=== PATIENT | female | born 1955 | race Two or more races ===

== ENCOUNTER 2019-04-14 20:25 | Inpatient (IN) | payer OTHER ==
[~2019-04-14] VITALS: Ht 149.9 cm; Wt 76.4 kg
[2019-04-14 21:27] LABS: Urine Bacteria NONE SEEN /hpf (None Seen); Urine Blood Negative /uL (Negative); Urine Mucus FEW (None Seen); Urine Specific Gravity 1.022 (1.001-1.035); Urine WBC 1 /hpf (0 - 5)
[2019-04-14 21:29] LABS: Basophils # (auto) 0.1 uL; Basophils % (auto) 0.7 % (0.0-2.0); Eosinophils # (auto) 0 uL; Eosinophils % (auto) 0.1 % (0.0-7.0); Lymphocytes % (auto) 12.6 % (10.0-50.0); Mean Corpuscular Hemoglobin 30.3 pg (28.0-32.0); Mean Corpuscular Hgb Conc. 34.1 g/dL (32.0-36.0); Mean Corpuscular Volume 88.8 fL (80.0-100.0); Monocytes % (auto) 6.2 % (0.0-12.0); Neutrophils # (auto) 13.1 uL; Neutrophils % (auto) 80.4 % (37.0-80.0); Platelet Count (auto) 252 10^3/uL (140-450); Red Blood Cells 4.95 10^6/uL (4.0-5.20); Red Cell Distribution Width 13.7 % (11.8-14.3); White Blood Cell 16.3 10^3/uL (4.4-10.8)
[2019-04-14 21:39] LABS: Albumin 4.3 g/dL (3.4-5.0); Amylase 30 U/L (25-115); Anion Gap 10 (5-15); Blood Urea Nitrogen 10 mg/dL (7-18); Calcium 9.4 mg/dL (8.5-10.1); Carbon Dioxide 25 mmol/L (21-32); Chloride 97 mmol/L (98-107); Glucose 174 mg/dL (74-106); Lipase 46 U/L (73-393); Potassium 3.7 mmol/L (3.5-5.1); Sodium 132 mmol/L (136-145)
[2019-04-14 21:43] LABS: INR 1.01 (0.9-1.15); Partial Thromboplastin Time 27.1 sec (23.64-32.05)
[2019-04-14 21:46] LABS: Alanine Aminotransferase 22 U/L (13-56); Alkaline Phosphatase 127 U/L (45-117); Aspartate Aminotransferase 13 U/L (15-37); BUN/Creatinine Ratio 13.5; Bilirubin, Total 0.8 mg/dL (0.2-1.0); GFR African American 102 mL/min; GFR Non-African American 84 mL/min; Total Protein 8.8 g/dL (6.4-8.2)
[2019-04-15] MEDS ORDERED: SODIUM CHLORIDE 0.9% 1,000 ML IVB ONE (01:37)
[2019-04-15] MEDS ORDERED: ONDANSETRON HCL 4 MG/2 ML VIAL IV ONE (01:45)
[2019-04-15] MEDS ORDERED: HYDROmorphone HCL 2 MG/ML VL IV ONE (01:45)
[2019-04-15] MEDS ORDERED: PIPERACILLIN-TAZOB 3.375GM 100 ML IV ONE (03:00)
[2019-04-15] MEDS ORDERED: metroNIDAZOLE 500MG/100ML 100 ML IV ONE (03:00)
[2019-04-15] MEDS ORDERED: MORPHINE SULF INJ 2 MG/ML SYRINGE 1ML IV PRN (04:15)
[2019-04-15] MEDS ORDERED: SODIUM CHLORIDE 0.9% 1,000 ML IV SCH (04:15)
[2019-04-15] MEDS: metroNIDAZOLE 500MG/100ML 100 ML IV SCH ×3 (06:08→21:28)
[2019-04-15] MEDS: D5W/SOD CHL 0.45%/KCL 20MEQ 1,000 ML IV SCH ×3 (07:34→21:04)
[2019-04-15 08:30] VITALS: BP 151/82
[2019-04-15 09:27] LABS: Anion Gap 12 (5-15); BUN/Creatinine Ratio 12.5; Blood Urea Nitrogen 9 mg/dL (7-18); Calcium 8.3 mg/dL (8.5-10.1); Carbon Dioxide 22 mmol/L (21-32); Chloride 103 mmol/L (98-107); GFR African American 105 mL/min; GFR Non-African American 87 mL/min; Glucose 173 mg/dL (74-106); Potassium 4.1 mmol/L (3.5-5.1); Sodium 137 mmol/L (136-145)
[2019-04-15 09:34] LABS: Basophils # (auto) 0.1 uL; Basophils % (auto) 0.5 % (0.0-2.0); Eosinophils # (auto) 0 uL; Eosinophils % (auto) 0.1 % (0.0-7.0); Hematocrit 39.4 % (36.0-46.0); Lymphocytes # (auto) 2.3 uL; Lymphocytes % (auto) 13.7 % (10.0-50.0); Mean Corpuscular Hemoglobin 29.7 pg (28.0-32.0); Mean Corpuscular Hgb Conc. 32.9 g/dL (32.0-36.0); Mean Corpuscular Volume 90.4 fL (80.0-100.0); Monocytes # (auto) 1.2 uL; Monocytes % (auto) 6.9 % (0.0-12.0); Neutrophils # (auto) 13.5 uL; Neutrophils % (auto) 78.8 % (37.0-80.0); Nucleated Red Blood Cells % 0.1 %; Platelet Count (auto) 230 10^3/uL (140-450); Red Blood Cells 4.36 10^6/uL (4.0-5.20); Red Cell Distribution Width 13.8 % (11.8-14.3); White Blood Cell 17.1 10^3/uL (4.4-10.8)
[2019-04-15] MEDS: cefTRIAXone 1GM/50ML D5W 50 ML IV SCH (11:44)
[2019-04-15 12:38] VITALS: BP 156/85
[2019-04-15] MEDS: ACETAMINOPHEN 325 MG TAB PO PRN (16:25)
[2019-04-15 16:38] VITALS: BP 155/78
[2019-04-15] MEDS: ONDANSETRON HCL 4 MG/2 ML VIAL IV PRN (21:06)
[2019-04-15 21:30] VITALS: BP 150/74
[2019-04-16] MEDS: ACETAMINOPHEN 325 MG TAB PO PRN (03:48)
[2019-04-16 04:30] VITALS: BP 150/74
[2019-04-16] MEDS: metroNIDAZOLE 500MG/100ML 100 ML IV SCH ×3 (05:07→21:58)
--- NOTE | 2019-04-16 08:00 | NUR ---
RECEIVED PT RESTING IN BED, CALL LIGHT WITHIN REACH, PT REPORTS PAIN ON RT ABDOMEN 6/10 WHEN TOUCHED ON ABDOMEN, NO PAIN NEEDED AT THIS TIME PER PT. WILL CONTINUE TO MONITOR PT. PT EDUCATED NOT TO EAT OR DRINK ANYTHING UNTIL SURGERY, PT VERBALIZED UNDERSTANDING,
[2019-04-16] MEDS: cefTRIAXone 1GM/50ML D5W 50 ML IV SCH (08:56)
[2019-04-16] MEDS: D5W/SOD CHL 0.45%/KCL 20MEQ 1,000 ML IV SCH ×2 (08:57→23:00)
[2019-04-16] MEDS: PANTOPRAZOLE 40 MG TAB PO SCH (08:59)
[2019-04-16 09:00] VITALS: BP 109/56
--- NOTE | 2019-04-16 09:35 | NUR ---
PATIENT WHEELED DOWN TO PRE-OP FOR PROCEDURE. Signed: 04/16/19 at 1148 by SN EUSEBIO <Co-Signature Required> Co-Signed: 04/16/19 at 1148 by Magy Baker RN
[2019-04-16] MEDS ORDERED: MIDAZOLAM HCL 1MG/1ML-2 ML VIAL ONE (10:18)
[2019-04-16] MEDS ORDERED: fentaNYL CITRATE 100 MCG/2 ML VL ONE (10:18)
[2019-04-16] MEDS ORDERED: MEPERIDINE HCL (25 MG/ML) 1ML VIAL ONE (10:18)
[2019-04-16] MEDS ORDERED: SODIUM CHLORIDE LOCK 10 ML ONE (10:19)
[2019-04-16] MEDS ORDERED: ONDANSETRON HCL 4 MG/2 ML VIAL ONE (10:19)
[2019-04-16] MEDS ORDERED: LIDOCAINE HCL 2% TOP JELLY 5ML TOP ONE (10:19)
[2019-04-16] MEDS ORDERED: ROCURONIUM 10MG/ML 10ML VIAL IV ONE (10:19)
[2019-04-16] MEDS ORDERED: ceFAZolin 1GM/50ML 50 ML IV ONE (10:38)
[2019-04-16] MEDS ORDERED: METOCLOPRAMIDE HCL 5MG/ml INJ 2ml VIAL IV ONE (10:45)
[2019-04-16] MEDS ORDERED: KETOROLAC TROMETH 15 mg/ml 1ML VL IV ONE (10:45)
[2019-04-16] MEDS ORDERED: HYDROmorphone HCL 2 MG/ML VL IV PRN (10:45)
[2019-04-16] MEDS ORDERED: KETOROLAC TROMETH 60MG/2ML VIAL ONE (11:43)
[2019-04-16] MEDS ORDERED: NEOSTIGMINE 1 MG/ML INJ (10mg/10ML VIAL) ONE (11:43)
[2019-04-16] MEDS ORDERED: GLYCOPYRROLATE 0.2 MG/ML 1ML VIAL ONE (11:43)
--- NOTE | 2019-04-16 14:30 | NUR ---
PT BACK IN THE ROOM S/P LAP LYDIA, PT HAS TWO MID ABDOMINAL INCISIONS WITH BETADINE STAINS, RT ABDOMEN JORDAN DRAIN WITH SANGUINEOUS DRAINAGE, JORDAN DRESSING WITH BETADINE STAINS, PT DENIES ANY PAIN OR DISCOMFORT AT THIS TIME, ABDOMINAL BINDER ON, PT EDUCATED TO CALL FOR ASSISTANCE OR IF SHE NEEDS PAIN MEDICATION, WILL CONTINUE TO MONITOR PT.
--- NOTE | 2019-04-16 17:18 | NUR ---
REGARDING JORDAN DRAIN 40MLS OF SANGUINOUS FLUID EMPTIED FROM JORDAN DRAIN TO R ABDOMEN. JORDAN BULB COMPRESSED. PATIENT TOLERATED WELL. Signed: 04/16/19 at 1801 by SN EUSEBIO <Co-Signature Required> Co-Signed: 04/16/19 at 1801 by Magy Baker RN
[2019-04-16 17:36] VITALS: BP 101/62
[2019-04-16 22:00] VITALS: BP 121/76
[2019-04-16] MEDS: ONDANSETRON HCL 4 MG/2 ML VIAL IV PRN (22:31)
[2019-04-17 04:34] VITALS: BP 147/79
[2019-04-17 05:26] LABS: Basophils # (auto) 0.1 uL; Eosinophils # (auto) 0.2 uL; Eosinophils % (auto) 1.3 % (0.0-7.0); Hematocrit 32.9 % (36.0-46.0); Lymphocytes # (auto) 1.8 uL; Lymphocytes % (auto) 14.8 % (10.0-50.0); Mean Corpuscular Hgb Conc. 33.3 g/dL (32.0-36.0); Mean Corpuscular Volume 90.1 fL (80.0-100.0); Monocytes # (auto) 0.7 uL; Monocytes % (auto) 5.9 % (0.0-12.0); Neutrophils # (auto) 9.4 uL; Nucleated Red Blood Cells % 0.1 %; Platelet Count (auto) 195 10^3/uL (140-450); Red Blood Cells 3.65 10^6/uL (4.0-5.20); Red Cell Distribution Width 14.2 % (11.8-14.3); White Blood Cell 12.2 10^3/uL (4.4-10.8)
[2019-04-17] MEDS: metroNIDAZOLE 500MG/100ML 100 ML IV SCH ×3 (05:31→21:26)
[2019-04-17 05:52] LABS: Anion Gap 8 (5-15); Calcium 7.6 mg/dL (8.5-10.1); Carbon Dioxide 24 mmol/L (21-32); Chloride 110 mmol/L (98-107); Glucose 147 mg/dL (74-106); Potassium 3.6 mmol/L (3.5-5.1); Sodium 142 mmol/L (136-145)
[2019-04-17 05:56] LABS: Blood Urea Nitrogen 7 mg/dL (7-18); GFR African American 147 mL/min; GFR Non-African American 121 mL/min
--- NOTE | 2019-04-17 07:30 | NUR ---
Opening Shift Note Assumed care of patient,awake and alert. No S/S of distress or SOB. Pt denies any pain at this time. Bed in lowest and locked position with side rails up x2 and call light within reach. Instructed on POC and to call for assist PRN, will continue to monitor for changes Q1hr and PRN.
[2019-04-17 08:44] VITALS: BP 151/79
[2019-04-17] MEDS: cefTRIAXone 1GM/50ML D5W 50 ML IV SCH (09:28)
[2019-04-17] MEDS: PANTOPRAZOLE 40 MG TAB PO SCH (09:28)
[2019-04-17] MEDS ORDERED: MILK OF MAGNESIA 30ML SUSP PO ONE (11:30)
[2019-04-17] MEDS: HYDROcodone-ACET 5/325MG TAB PO PRN (12:09)
[2019-04-17 12:41] VITALS: BP 163/81
--- NOTE | 2019-04-17 13:00 | NUR ---
DISCUSSED WITH PT THE FLEET ENEMA THAT WAS ORDERED BY THE MD. PT REFUSED THE ENEMA. EDUCATED THE PT ON THE IMPORTANCE OF THE ENEMA AND THE BENEFITS OF PROCEEDING WITH THE ENEMA AND PT STATED THAT SHE WOULD RATHER WAIT TO SEE IF SHE CAN HAVE A BM ON HER OWN.
[2019-04-17] MEDS: D5W/SOD CHL 0.45%/KCL 20MEQ 1,000 ML IV SCH (15:15)
--- NOTE | 2019-04-17 16:00 | NUR ---
IV insertion IV access obtained, via clean sterile technique by inserting 20 gauge catheter at RIGHT HAND after 1 attempt(s). IV secured properly. No trauma to site. Patient tolerated well.
--- NOTE | 2019-04-17 16:00 | NUR ---
IV removal IV IN THE LEFT FA DC'd with clean sterile technique, catheter fully intact. Pressure dressing applied to site. Patient tolerated well.
[2019-04-17 17:00] VITALS: BP 156/90
--- NOTE | 2019-04-17 19:25 | NUR ---
25 ML OF JORDAN DRAINAGE FOR DAY SHIFT.
--- NOTE | 2019-04-17 19:25 | NUR ---
Opening shift note: Assumed care from day nurse. Patient is alert and orient x 4. No s/s of distress or sob. Patient denies pain at this time. Instruct patient on poc and to call for assistance as need. IV 22g to right hand patient, clean and dry. Abdominal binder in place. Incision intact clean and dry and marion present and draining. Bed in lowest position with call light in reach.
[2019-04-17 22:00] VITALS: BP 162/90
[2019-04-18 05:00] VITALS: BP 150/85
[2019-04-18] MEDS: metroNIDAZOLE 500MG/100ML 100 ML IV SCH ×2 (05:41→14:00)
[2019-04-18] MEDS: HYDROcodone-ACET 5/325MG TAB PO PRN (05:42)
--- NOTE | 2019-04-18 07:23 | NUR ---
50ML out of JORDAN tube 50ML of serous drainage for night auditor from JORDAN tube
[2019-04-18 10:10] VITALS: BP 138/69
[2019-04-18] MEDS: PANTOPRAZOLE 40 MG TAB PO SCH (10:13)
[2019-04-18] MEDS ORDERED: ACE325T PO (11:54)
[2019-04-18] MEDS ORDERED: METR500T PO (12:02)
[2019-04-18] MEDS ORDERED: DOCU-94 PO (12:04)
[2019-04-18 12:28] VITALS: BP 141/80
[2019-04-18 14:34] VITALS: BP 153/81
[2019-04-18 14:36] VITALS: BP 141/80
--- NOTE | 2019-04-18 15:04 | NUR ---
Pt educated on incisional care, keeping site clean and dry, no bathing or showering until she checks in with Dr Roman. Pt educated on how to empty drain and did return demonstration. Pt educated to return to e.r. for redness or swelling around site, fever, chills, darker or excessive drainage. Pt verbalized understanding. MD reports patient will DC with drain but must have f/u dain scheduled with Dr Roman before DC. Follow up dain made.
--- NOTE | 2019-04-18 16:22 | NUR ---
Discharge instructions given as ordered. Encourage to follow up with PMD as instructed. All questions and concerns addressed. Patient verbalized understanding. Medication reconciliation form completed and copy given to patient. IV removed with catheter intact, pressure dressing applied. Patient taken to vehicle via wheelchair with all personal belongings, accompanied by staff and . No distress noted at time of departure. Addendum: 04/18/19 at 1623 by IGLESIA BROWNING RN DC'D AT [id number]
== END 2019-04-18 14:00 | disposition home or self-care (01) | DRG 419 ==
LOC: ER 20:27 → OVERFLOW 20:28 → WEST WING 04-15 08:27
PROVIDERS: ADMIT Nurse Practitioner Family; ATTEND Internal Medicine Nephrology
PROC: 0FT44ZZ Resection of Gallbladder, Percutaneous Endoscopic Approach (ICD-10-PCS; principal; 2019-04-16 10:56)
DX: K80.00 Calculus of gallbladder with acute cholecystitis without obstruction (principal); K57.30 Diverticulosis of large intestine without perforation or abscess without bleeding; Z90.49 Acquired absence of other specified parts of digestive tract
CPT/HCPCS: 36415; 71046; 74176; 76705; 80048; 80053; 81001; 82150; 82247; 82962; 83036; 83690; 83735; 84484; 85025; 85610; 85730; 86850; 86900; 86901; 87040; 87070; 87075; 87077; 87186; 87205; 93005; 94761; 96361; 96365; 96366; 96368; 96375; G0378; J0690; J0696; J1885; J2250; J2405; J2543; J3490